=== PATIENT | male | born 1945 | race Caucasian/White ===

== ENCOUNTER 2017-08-10 15:55 | Inpatient (IN) | payer MEDICARE ==
[~2017-08-10] VITALS: Ht 182.9 cm; Wt 117.9 kg
[~2017-08-10 15:55] MED LIST: AMLODIPINE5 MG PO; AMOXICILLIN/CL875 MG OR; AZATHIOPRINE50 MG PO; BAYER LOW81 MG PO; BOOSTRIX IM; CELEBREX200 MG PO; FERR SULFATE325 MG PO; FLUZONE SPLT1 M1 IM; MESTINON PO; MULTIVITAMIN OR; ONE DAIL1 PO; OXYBUTYNIN10 MG OR; OXYBUTYNIN10 MG PO; PREDNISONE10 MG PO; PYRIDOSTIGM60 MG PO; SINGULAIR10 MG PO; TET/DIP TOX1 ML IM; TYLOPHEN500 MG PO
[2017-08-13] VITALS (9 sets, daily range): BP systolic 117–137; BP diastolic 64–80
[2017-08-13 06:50] LABS: ACT PARTIAL THROMBO TIME 23.3 SECONDS (20.0-32.5); PROTHROMBIN TIME 10.7 SECONDS (9.0-12.5)
[2017-08-13 07:02] LABS: HEMATOCRIT 41.3 % (39.0-50.0); IMMATURE GRANULOCYTES 0.6 % (0.0-1.0); MEAN CELL VOLUME 91.8 fL CALC (80.0-100.0); MEAN CORPUSCULAR HGB 28.9 pG CALC (26.0-32.0); MEAN CORPUSCULAR HGB CONC 31.5 g/L CALC (32.0-36.0); NEUT# 4.15 thou/uL (1.82-7.42); RED BLOOD COUNT 4.5 mill/uL (4.70-6.10); RED CELL DISTRI WIDTH 14.5 % (11.5-15.5)
--- NOTE | 2017-08-13 11:04 | NUR ---
PT.ARRIVED TO FLOOR VIA BED ACCOMPANIED BY OR NURSES X3. IV FLUIDS ARE RUNNING UPON ARRIVAL TO FLOOR. PT.APPEARS TO BE STABLE AND AWAKE. DENIES PAIN/N/V AT THIS TIME. PT.ORIENTED TO ROOM,CALL SYSTEM,LIGHTS,BED AND TV. V/S ASSESSED. IS AT BEDSDIE AND PT.INSTRUCTED ON USAGE. SCD'S IN PLACE, ICE PACK ON SHOULDER AND ARM IN SLING. PT.INSTRUCTED TO CALL AND LIGHT POSITIONED TO SIDE W/GOOD ARM.
--- NOTE | 2017-08-13 12:05 | NUR ---
PT.ADMISSION QUESTIONS COMPLETED AND PT.ASSESSED. LEFT SHOULDER INCISIONAL DRESSING CDI. PT.DENIES ANY PAIN AT THIS TIME. PT.IS DRINKING SIPS AT THIS TIME AND INSTRUCTED TO USE IS
--- NOTE | 2017-08-13 15:20 | NUR ---
PT.HAS FRIENDS/FAMILY AT BEDSIDE. DENIES PAIN OR ANY OTHER NEEDS AT THIS TIME. PT.IS SITTING ON SIDE OF BED AT THIS TIME.
--- NOTE | 2017-08-13 16:44 | NUR ---
PT.MEDICATED ORDERS PROVIDE. PT.ASSISTED TO RESTROOM AND BACK TO THE BED. PT.ASSISTED INTO BED, HIGH FOWLERS POSITION. DENIES PAIN. HANDS ARE WARM, MARINE OIL TERMINAL SUPERINTENDENT STRONG, BUT PT.REPORTS SOME NUMBNESS AND TINGLING STILL IN POINTER FINGER AND THUMB AT THIS TIME. DENIES PAIN.
--- NOTE | 2017-08-13 19:00 | NUR ---
PT SITTING UP IN BED WATCHING TV. PT IS ALERT AND ORIENTED X3. PERRLA. RESP ARE EVEN AND UNLABORED. NO DISTRESS NOTED. LUNGS ARE CLEAR. HR REGULAR. PULSES PALPABLE THROUGHOUT. NO EDEMA NOTED. BS ACTIVE. PT VOIDING CLEAR YELLOW URINE IN URINAL. PT DENIES PAIN AT THIS TIME. INSTRUCTED PT ON USE OF IS. PT IS USING IS. #20 RIGHT WRIST SALINE LOCKED. NO REDNESS OR EDEMA NOTED. WILL CONTINUE TO MONITOR
--- NOTE | 2017-08-14 | NUR ---
PT RESTING IN BED WITH EYES CLOSED. RESP ARE EVEN AND UNLABORED. NO DISTRESS NOTED. WILL CONTINUE TO MONITOR
[2017-08-14 04:05] VITALS: BP 120/71
--- NOTE | 2017-08-14 04:05 | NUR ---
PT RESTING IN BED WITH EYES CLOSED. RESP ARE EVEN AND UNLABORED. NO DISTRESS NOTED. WILL CONTINUE TO MONITOR
[2017-08-14 06:04] LABS: HEMATOCRIT 38.2 % (39.0-50.0); HEMOGLOBIN 12.4 g/dl (14.0-18.0)
[2017-08-14 06:22] LABS: ANION GAP 14 (6-22 (CALC)); BUN 13 mg/dL (8-23); BUN/CREATININE RATIO 18 (12-20 (CALC)); CARBON DIOXIDE 25 mmol/l (22-30); CHLORIDE 109 mmol/l (95-108); CREATININE 0.7 mg/dL (0.7-1.3); GFR > 60 ML/MIN (>=60 (CALC)); GFR FOR AFR.AMER. > 60 ML/MIN (>=60 (CALC)); POTASSIUM 4.3 mmol/l (3.5-5.1); SODIUM 144 mmol/l (137-146)
--- NOTE | 2017-08-14 07:15 | NUR ---
RECEIVING REPORT FROM NIGHT NURSE, PT.REPORTS THAT HE IS NOT IN MUCH PAIN, BUT HE WOULD LIKE SOMETHING IN CASE P.T. COMES TO WORK WITH HIM. I ASSURED HIM THAT I WOULD BRING HIM SOMETHING FOR PAIN.
[2017-08-14 07:44] VITALS: BP 138/72
[2017-08-14 09:58] VITALS: BP 138/72
[2017-08-14] MEDS ORDERED: PERCOCET 10/31 COMBO PO (10:34)
[2017-08-14] MEDS ORDERED: FERR SULFATE325 MG PO (10:34)
--- NOTE | 2017-08-14 12:15 | NUR ---
PT. IV REMOVED INTACT/SITE APPEARS HEALTHY. PT.DISCHARGE REVIEWED AND SIGNED, BUT PT.LUNCH WAS JUST DELIVERED SO HE IS GOING TO EAT AT THIS TIME.
== END 2017-08-14 12:26 | disposition home or self-care (01) | DRG 483 ==
LOC: MS2 08-13 05:49
PROVIDERS: Nurse Practitioner Family; ADMIT Orthopaedic Surgery; ATTEND Orthopaedic Surgery
PROC: 0RRK00Z Replacement of Left Shoulder Joint with Reverse Ball and Socket Synthetic Substitute, Open Approach (ICD-10-PCS; principal; 2017-08-13)
PROC: 0LS40ZZ Reposition Left Upper Arm Tendon, Open Approach (ICD-10-PCS; 2017-08-13)
DX: M75.122 Complete rotator cuff tear or rupture of left shoulder, not specified as traumatic (principal); G70.00 Myasthenia gravis without (acute) exacerbation; I10 Essential (primary) hypertension; G47.33 Obstructive sleep apnea (adult) (pediatric); M19.012 Primary osteoarthritis, left shoulder; S46.212A Strain of muscle, fascia and tendon of other parts of biceps, left arm, initial encounter; X58.XXXA Exposure to other specified factors, initial encounter; Z01.818 Encounter for other preprocedural examination; Z97.4 Presence of external hearing-aid
CPT/HCPCS: J2710

== ENCOUNTER 2018-03-08 08:28 | Emergency (ER) | payer MEDICARE ==
[~2018-03-08] VITALS: Ht 182.9 cm; Wt 100.0 kg
[~2018-03-08 08:28] MED LIST changes: +PERCOCET 10/31 COMBO PO
[2018-03-08] MEDS ORDERED: TORADOL PO (11:26)
[2018-03-08 11:30] VITALS: BP 139/70
== END 2018-03-08 11:42 | disposition home or self-care (01) ==
LOC: ED 08:28
DX: R07.89 Other chest pain (principal); G70.00 Myasthenia gravis without (acute) exacerbation; X50.0XXA Overexertion from strenuous movement or load, initial encounter; Y93.H2 Activity, gardening and landscaping; Y92.007 Garden or yard of unspecified non-institutional (private) residence as the place of occurrence of the external cause; Y99.9 Unspecified external cause status

== ENCOUNTER 2018-08-12 08:13 | Outpatient (RCR) | payer MEDICARE ==
[2018-08-08 13:23] VITALS: BP 149/72
[2018-08-09 10:20] VITALS: BP 158/72
[2018-08-10 12:40] VITALS: BP 163/72
[2018-08-11 10:46] VITALS: BP 131/67
[~2018-08-12 08:13] MED LIST changes: +TORADOL PO
[2018-08-12 13:01] VITALS: BP 134/65
== END 2018-08-12 14:00 | disposition home or self-care (01) ==
LOC: INF 08:13
PROVIDERS: ATTEND Specialist
DX: G70.01 Myasthenia gravis with (acute) exacerbation (principal)
CPT/HCPCS: J1459

== ENCOUNTER → 2018-08-18 | Outpatient (REF) | payer MEDICARE ==
[2018-08-18 11:35] LABS: ALBUMIN 3.9 g/dL (3.2-5.0); ALKALINE PHOSPHATASE 62 u/l (38-126); ANION GAP 12 (6-22 (CALC)); BUN 17 mg/dL (8-23); BUN/CREATININE RATIO 18 (12-20 (CALC)); CARBON DIOXIDE 27 mmol/l (22-30); CHLORIDE 107 mmol/l (95-108); CREATININE 0.9 mg/dL (0.7-1.3); GFR > 60 ML/MIN (>=60 (CALC)); GFR FOR AFR.AMER. > 60 ML/MIN (>=60 (CALC)); POTASSIUM 4.4 mmol/l (3.5-5.1); SODIUM 142 mmol/l (137-146)
[2018-08-18 11:37] LABS: SGOT/AST 28 u/l (19-48); TOTAL PROTEIN 8.1 g/dL (6.3-8.2)
== END | disposition home or self-care (01) ==
LOC: LAB 10:43
PROVIDERS: ATTEND Specialist
DX: G70.01 Myasthenia gravis with (acute) exacerbation (principal)

== ENCOUNTER → 2018-09-06 | Outpatient (REF) | payer MEDICARE | END | disposition home or self-care (01) | LOC: DI 13:25 | PROVIDERS: ATTEND Orthopaedic Surgery | DX: Z47.1 Aftercare following joint replacement surgery (principal); Z96.612 Presence of left artificial shoulder joint ==

== ENCOUNTER 2018-10-08 08:46 | Emergency (ER) | payer MEDICARE ==
[~2018-10-08] VITALS: Ht 182.9 cm; Wt 118.0 kg
[2018-10-08 09:39] LABS: HEMOGLOBIN 14.1 g/dl (14.0-18.0); IMMATURE GRANULOCYTES 0.4 % (0.0-5.0); MEAN CELL VOLUME 94.9 fL CALC (80.0-100.0); MEAN CORPUSCULAR HGB 31.1 pG CALC (26.0-32.0); MEAN CORPUSCULAR HGB CONC 32.8 g/L CALC (32.0-36.0); NEUT# 3.73 thou/uL (1.82-7.42); RED BLOOD COUNT 4.53 mill/uL (4.70-6.10); RED CELL DISTRI WIDTH 13.9 % (11.5-15.5)
[2018-10-08] MEDS ORDERED: FERR SULFATE325 MG PO (09:39)
[2018-10-08 09:58] LABS: ALKALINE PHOSPHATASE 60 u/l (38-126); ANION GAP 13 (6-22 (CALC)); BILIRUBIN, TOTAL 0.7 mg/dL (0.0-1.4); BUN 17 mg/dL (8-23); BUN/CREATININE RATIO 21 (12-20 (CALC)); CARBON DIOXIDE 27 mmol/l (22-30); CHLORIDE 108 mmol/l (95-108); CREATININE 0.8 mg/dL (0.7-1.3); GFR > 60 ML/MIN (>=60 (CALC)); GFR FOR AFR.AMER. > 60 ML/MIN (>=60 (CALC)); POTASSIUM 3.9 mmol/l (3.5-5.1); SGOT/AST 27 u/l (19-48); SODIUM 143 mmol/l (137-146); TOTAL PROTEIN 6.9 g/dL (6.3-8.2)
[2018-10-08] MEDS ORDERED: ZITHROMAX250 MG PO (11:05)
[2018-10-08] MEDS ORDERED: PROVENTIL HFA IN (11:05)
[2018-10-08] MEDS ORDERED: MEDDOSEPAK PO (11:05)
[2018-10-08 11:15] VITALS: BP 148/65
[2018-10-08] MEDS ORDERED: TESSALON PER100 MG PO (11:20)
== END 2018-10-08 11:15 | disposition home or self-care (01) ==
LOC: ED 08:46
PROVIDERS: Emergency Medicine
DX: J06.9 Acute upper respiratory infection, unspecified (principal); I10 Essential (primary) hypertension

== ENCOUNTER 2022-01-20 08:47 | Emergency (ER) | payer MEDICARE ==
[~2022-01-20] VITALS: Ht 182.9 cm; Wt 115.0 kg
[2022-01-20] VITALS (7 sets, daily range): BP systolic 119–155; BP diastolic 56–75
[~2022-01-20 08:47] MED LIST changes: +FISH OIL1000 M2 PO; +LATANOPROST0.005 % OU; +MEDDOSEPAK PO; +PROVENTIL HFA IN; +TESSALON PER100 MG PO; +ZITHROMAX250 MG PO
[2022-01-20 09:12] LABS: HEMATOCRIT 37.8 % (39.0-50.0); HEMOGLOBIN 11.4 g/dl (14.0-18.0); MEAN CELL VOLUME 93.8 fL CALC (80.0-100.0); MEAN CORPUSCULAR HGB 28.3 pG CALC (26.0-32.0); MEAN CORPUSCULAR HGB CONC 30.2 g/dL CAL (32.0-36.0); NEUT# 4.96 thou/uL (1.82-7.42); RED BLOOD COUNT 4.03 mill/uL (4.70-6.10); RED CELL DISTRI WIDTH 15.4 % (11.5-15.5)
[2022-01-20] MEDS ORDERED: D350 MCG PO (09:14)
[2022-01-20] MEDS ORDERED: HYDROCHLOROTH12.5 M1 PO (09:17)
[2022-01-20] MEDS ORDERED: DORZOLAMIDE HCL2 % OU (09:20)
[2022-01-20] MEDS ORDERED: ALENDRONATE SOD70 MG PO (09:21)
[2022-01-20] MEDS ORDERED: BRIMONIDINE0.2 % OU (09:23)
[2022-01-20] MEDS ORDERED: FERROUS SULF325 M2 PO (09:26)
[2022-01-20] MEDS ORDERED: [UNRECOGNIZED DRUG - OTHER] (09:35)
[2022-01-20 09:42] LABS: ALBUMIN 4.3 g/dL (3.2-5.0); ALKALINE PHOSPHATASE 53 u/l (38-126); ANION GAP 12 (6-22 (CALC)); BILIRUBIN, TOTAL 0.7 mg/dL (0.0-1.4); BUN 13 mg/dL (8-23); BUN/CREATININE RATIO 16 (12-20 (CALC)); CARBON DIOXIDE 27 mmol/l (22-30); CHLORIDE 107 mmol/l (95-108); CREATININE 0.8 mg/dL (0.7-1.3); GFR FOR AFR.AMER. > 60 ML/MIN (>=60 (CALC)); GFR OTHER RACES > 60 ML/MIN (>=60 (CALC)); POTASSIUM 3.9 mmol/l (3.5-5.1); SGOT/AST 22 u/l (19-48); SODIUM 143 mmol/l (137-146); TOTAL PROTEIN 6.6 g/dL (6.3-8.2)
[2022-01-20] MEDS ORDERED: CEPHALEXIN500 M1 PO (10:45)
== END 2022-01-20 11:14 | disposition home or self-care (01) ==
LOC: ED 08:47
PROVIDERS: Family Medicine
DX: L03.115 Cellulitis of right lower limb (principal); I10 Essential (primary) hypertension; I25.10 Atherosclerotic heart disease of native coronary artery without angina pectoris; G70.00 Myasthenia gravis without (acute) exacerbation; Z95.5 Presence of coronary angioplasty implant and graft

== ENCOUNTER 2024-09-12 17:26 | Emergency (ER) | payer MEDICARE ==
[~2024-09-12] VITALS: Ht 182.9 cm; Wt 104.0 kg
[2024-09-12] VITALS (8 sets, daily range): BP systolic 135–163; BP diastolic 80–94
[~2024-09-12 17:26] MED LIST changes: +ALENDRONATE SOD70 MG PO; +BRIMONIDINE0.2 % OU; +CEPHALEXIN500 M1 PO; +D350 MCG PO; +DORZOLAMIDE HCL2 % OU; +FERROUS SULF325 M2 PO; +HYDROCHLOROTH12.5 M1 PO; +[UNRECOGNIZED DRUG - OTHER]
[2024-09-12] MEDS ORDERED: KETOROLAC TROMETHAMINE 30 MG/ML SDV IM ONE (18:15)
[2024-09-12 18:44] LABS: HEMATOCRIT 40.6 % (39.0-50.0); HEMOGLOBIN 12.9 g/dl (14.0-18.0); IMMATURE GRANULOCYTES 0.2 % (0.0-5.0); LYMPH% 28.2 % (15-41); MEAN CELL VOLUME 95.1 fL CALC (80.0-100.0); MEAN CORPUSCULAR HGB 30.2 pG CALC (26.0-32.0); MEAN CORPUSCULAR HGB CONC 31.8 g/dL CAL (32.0-36.0); MONO% 14.7 % (2-13); NEUT# 2.56 thou/uL (1.82-7.42); NEUT% 50.9 % (42-76); RED BLOOD COUNT 4.27 mill/uL (4.70-6.10)
[2024-09-12 18:53] LABS: CREATININE 0.7 mg/dL (0.7-1.3); POTASSIUM 3.9 mmol/l (3.5-5.1)
[2024-09-12] MEDS ORDERED: DECADRON4 MG PO (19:42)
[2024-09-12] MEDS ORDERED: EC-NAPROXEN500 MG PO (19:42)
== END 2024-09-12 19:54 | disposition home or self-care (01) ==
LOC: ED 17:26
PROVIDERS: Family Medicine
DX: M17.11 Unilateral primary osteoarthritis, right knee (principal); I10 Essential (primary) hypertension; G70.00 Myasthenia gravis without (acute) exacerbation